=== PATIENT | female | born 1965 | race Two or more races ===

== ENCOUNTER 2022-07-14 14:35 | Emergency (ER) | payer MEDICAID ==
[~2022-07-14] VITALS: Ht 149.9 cm; Wt 58.0 kg
[2022-07-14 15:25] LABS: Basophils # (auto) 0.1 10 ^3/uL (0-0.2); Eosinophils # (auto) 0.1 10 ^3/uL (0-0.8); Eosinophils % (auto) 0.7 % (0.0-7.0); Hematocrit 41.9 % (36.0-46.0); Hemoglobin 14.3 g/dL (12.2-16.2); Lymphocytes # (auto) 3.2 10 ^3/uL (0.4-5.4); Lymphocytes % (auto) 36.8 % (10.0-50.0); Mean Corpuscular Hemoglobin 31.4 pg (28.0-32.0); Mean Corpuscular Volume 92.3 fL (80.0-100.0); Monocytes # (auto) 0.5 10 ^3/uL (0-1.3); Monocytes % (auto) 5.4 % (0.0-12.0); Neutrophils # (auto) 4.9 10 ^3/uL (1.6-8.6); Neutrophils % (auto) 56.1 % (37.0-80.0); Red Blood Cells 4.55 10^6/uL (4.0-5.20); Red Cell Distribution Width 13.2 % (11.8-14.3); White Blood Cell 8.7 10^3/uL (4.4-10.8)
[2022-07-14 15:54] LABS: Calcium 9.4 mg/dL (8.5-10.1); Potassium 4.2 mmol/L (3.5-5.1)
[2022-07-14 15:56] LABS: BUN/Creatinine Ratio 14.8; Bilirubin, Total 0.3 mg/dL (0.2-1.0); Total Protein 8.4 g/dL (6.4-8.2)
[2022-07-14 16:14] LABS: Urine WBC None Seen /hpf (0 - 5)
[2022-07-14 16:28] LABS: Urine Bacteria NONE SEEN /hpf (None Seen); Urine Blood TRACE /uL (Negative); Urine Specific Gravity 1.002 (1.001-1.035)
[2022-07-14] MEDS ORDERED: ALBUTEROL SULF 2.5 MG/0.5ML(0.5%) NEB SOLN NEB ONE (16:30)
[2022-07-14] MEDS ORDERED: KETOROLAC TROMETH 60MG/2ML VIAL IV ONE (16:30)
[2022-07-14] MEDS ORDERED: DexAMETHasone SOD PHOS 10MG/1ML VIAL INJ IV ONE (16:30)
[2022-07-14] MEDS ORDERED: ALBU108A5 IN (17:22)
[2022-07-14] MEDS ORDERED: SPACMIS8 XX (17:22)
[2022-07-14] MEDS ORDERED: PRED20TA2 PO (17:23)
[2022-07-14 17:29] VITALS: BP 139/67
== END 2022-07-14 17:41 | disposition home or self-care (01) ==
LOC: ER 14:35
DX: J98.01 Acute bronchospasm (principal); Z90.710 Acquired absence of both cervix and uterus
CPT/HCPCS: 36415; 71046; 80053; 81001; 84484; 85025; 93005; 96374; 96375; 99285; J1100; J1885